=== PATIENT | female | born 1995 | race Caucasian/White ===

== ENCOUNTER 2016-07-25 20:46 | Emergency (ER) | payer OTHER ==
--- NOTE | 2016-07-25 22:00 | EDPHY ---
Mental Health General Previous Psychiatric History: bipolar Smoking Status: Never smoked Time Patient Placed on M1 Hold: 18:40 Time Medically Cleared for Psychiatric Evaluation: 22:48 Time of Transfer of Care: 00:00 To :: [place] Narrative: CHIEF COMPLAINT: M1 hold, suicidal HISTORY OF PRESENT ILLNESS: 21-year-old female presents emergency department on an M1 hold. Patient was texting friends that she was suicidal today. They called 911. Patient has a history of bipolar disorder, takes her medications as prescribed, her psychiatrist in [place] recently 1 week ago added Seroquel and Ativan to her medication list. Patient takes Lamictal, rigzulti, trazodone , gabapentin and xanax. She reports she has fibromyalgia. Patient reports increase in her depression. She denies any plan to harm herself. She denies drug or alcohol use. No homicidal ideations. No auditory or visual hallucinations. REVIEW OF SYSTEMS: A comprehensive 10 point review of systems is otherwise negative aside from elements mentioned in the history of present illness. Physical Exam Gen: Alert and Oriented, tearful HEENT: PERRL, moist mucous membranes NECK: no meningismus CV: regular rate and regular rhythm PULM: CTAB, no wheezes ABDOMEN: soft, non tender to palpation, BS present BACK: No CVA tenderness NEURO: Neurologically grossly intact EXTREMITIES: normal appearing SKIN: no rash or break in skin on exposed skin PSYCH: Reports thoughts of suicide with no plan (Yulisa Jensen) Medical Decision Makin-Report passed on to Dr. Head at the end of my shift pending mental health evaluation. (Yulisa Jensen) 6:20 a.m.- The patient has been stable throughout my shift. She is currently awaiting mental health evaluation. At change of shift at 7:00 a.m., the case will be signed out to the oncoming provider Dr. Portillo. (Pamela Head) 7:00 a.m. care transferred to ak. We are awaiting psychiatric evaluation. Patient has been medically cleared. No events overnight. 7:30 a.m. the patient has been evaluated by Mental Health. she is not currently suicidal. Her M1 hold has been released. We will discharge her home. (Yordan Portillo) - Objective Vital Signs: Initial Vital Signs Temperature (C) 37 C 07/25/16 20:53 Heart Rate 94 07/25/16 20:53 Respiratory Rate 16 07/25/16 20:53 Blood Pressure 124/74 H 07/25/16 20:53 O2 Sat (%) 98 07/25/16 20:53 O2 Delivery Mode Room Air Allergies/Adverse Reactions: gluten, corn syrup Allergy (Uncoded 07/25/16 20:54) Home Medications: Medication Instructions Recorded GABAPENTIN 12/20/15 Luvox 12/20/15 Pantoprazole Sodium [Protonix] 40 mg PO DAILY #14 tab 12/20/15 Rexulti 12/20/15 VYVANSE 12/20/15 traZODone 12/20/15 Ativan 07/25/16 LaMICtal 07/25/16 Seroquel 100 mg (*) 07/25/16 Xanax 07/25/16 Laboratory Results: Laboratory Results 07/25/16 21:55 07/25/16 21:55 07/25/16 07/25/16 07/25/16 22:00 21:55 21:55 WBC RBC Hgb Hct MCV MCH MCHC RDW Plt Count MPV Neut % (Auto) Lymph % (Auto) [place] % (Auto) Eos % (Auto) Baso % (Auto) Nucleat RBC Rel Count Absolute Neuts (auto) Absolute Lymphs (auto) Absolute Monos (auto) Absolute Eos (auto) Absolute Basos (auto) Absolute Nucleated RBC Immature Gran % Immature Gran # Sodium 139 mEq/L mEq/L (134-144) Potassium 3.8 mEq/L mEq/L (3.5-5.2) Chloride 104 mEq/L mEq/L (97-110) Carbon Dioxide 23 mEq/l mEq/l (22-31) Anion Gap 12 mEq/L mEq/L (8-16) BUN 13 mg/dL mg/dL (7-23) Creatinine 0.8 mg/dL mg/dL (0.6-1.0) Estimated GFR > 60 Glucose 140 mg/dL H mg/dL (70-100) Calcium 9.1 mg/dL mg/dL (8.5-10.4) Beta HCG, Qual NEGATIVE Urine Opiates Screen NON-NEGATIVE H (NEGATIVE) Urine Barbiturates NEGATIVE (NEGATIVE) Ur Phencyclidine Scrn NEGATIVE (NEGATIVE) Ur Amphetamine Screen NON-NEGATIVE H (NEGATIVE) U Benzodiazepines Scrn NON-NEGATIVE H (NEGATIVE) Urine Cocaine Screen NEGATIVE (NEGATIVE) U Marijuana (THC) Screen NEGATIVE (NEGATIVE) Ethyl Alcohol < 10 mg/dL mg/dL (0-10) 07/25/16 21:55 WBC 5.90 10^3/uL 10^3/uL (3.80-9.50) RBC 5.03 10^6/uL 10^6/uL (4.18-5.33) Hgb 13.7 g/dL g/dL (12.6-16.3) Hct 41.4 % % (38.0-47.0) MCV 82.3 fL fL (81.5-99.8) MCH 27.2 pg L pg (27.9-34.1) MCHC 33.1 g/dL g/dL (32.4-36.7) RDW 13.2 % % (11.5-15.2) Plt Count 215 10^3/uL 10^3/uL (150-400) MPV 9.6 fL fL (8.7-11.7) Neut % (Auto) 38.3 % L % (39.3-74.2) Lymph % (Auto) 56.3 % H % (15.0-45.0) [place] % (Auto) 3.7 % L % (4.5-13.0) Eos % (Auto) 1.2 % % (0.6-7.6) Baso % (Auto) 0.3 % % (0.3-1.7) Nucleat RBC Rel Count 0.0 % % (0.0-0.2) Absolute Neuts (auto) 2.26 10^3/uL 10^3/uL (1.70-6.50) Absolute Lymphs (auto) 3.32 10^3/uL H 10^3/uL (1.00-3.00) Absolute Monos (auto) 0.22 10^3/uL L 10^3/uL (0.30-0.80) Absolute Eos (auto) 0.07 10^3/uL 10^3/uL (0.03-0.40) Absolute Basos (auto) 0.02 10^3/uL 10^3/uL (0.02-0.10) Absolute Nucleated RBC 0.00 10^3/uL 10^3/uL (0-0.01) Immature Gran % 0.2 % % (0.0-1.1) Immature Gran # 0.01 10^3/uL 10^3/uL (0.00-0.10) Sodium Potassium Chloride Carbon Dioxide Anion Gap BUN Creatinine Estimated GFR Glucose Calcium Beta HCG, Qual Urine Opiates Screen Urine Barbiturates Ur Phencyclidine Scrn Ur Amphetamine Screen U Benzodiazepines Scrn Urine Cocaine Screen U Marijuana (THC) Screen Ethyl Alcohol Departure - Departure Disposition: Home, Routine, Self-Care Clinical Impression: Bipolar 1 disorder Condition: Fair Instructions: Bipolar Disorder (ED) Referrals: [facility],. [Clinic] - As per Instructions
[2016-07-25 22:06] LABS: % IMMATURE GRANULYOCYTES 0.2 % (0.0-1.1); ABSOLUTE IMMATURE GRANULOCYTES 0.01 10^3/uL (0.00-0.10); ADD DIFF? NO; ADD MORPH? NO; ADD SCAN? NO; ATYPICAL LYMPHOCYTE FLAG 10 (0-99); FRAGMENT RBC FLAG 0 (0-99); HEMATOCRIT 41.4 % (38.0-47.0); HEMOGLOBIN 13.7 g/dL (12.6-16.3); LEFT SHIFT FLG 0 (0-99); LIPEMIA HEMOLYSIS FLAG 80 (0-99); MEAN CELL HEMOGLOBIN 27.2 pg (27.9-34.1); MEAN CELL HEMOGLOBIN CONCENTR. 33.1 g/dL (32.4-36.7); MEAN CELL VOLUME 82.3 fL (81.5-99.8); MEAN PLATELET VOLUME 9.6 fL (8.7-11.7); PLATELET CLUMPS FLAG 10 (0-99); PLATELET COUNT 215 10^3/uL (150-400); RED BLOOD CELL COUNT 5.03 10^6/uL (4.18-5.33); RED CELL DISTRIBUTION WIDTH 13.2 % (11.5-15.2)
[2016-07-25 22:23] LABS: ANION GAP 12 mEq/L (8-16); CALCIUM 9.1 mg/dL (8.5-10.4); CARBON DIOXIDE 23 mEq/l (22-31); CHLORIDE 104 mEq/L (97-110); CREATININE 0.8 mg/dL (0.6-1.0); ETHANOL SERUM < 10 mg/dL (0-10); GLOMERULAR FILTRATION RATE > 60; GLUCOSE 140 mg/dL (70-100); POTASSIUM 3.8 mEq/L (3.5-5.2); SODIUM 139 mEq/L (134-144)
[2016-07-26 08:15] VITALS: BP 100/52; PULSE 65; RESP 18; TEMP 97.2; O2SAT 96
== END 2016-07-26 08:30 | disposition home or self-care (01) ==
LOC: EDUNIT#
DX: F31.9 Bipolar disorder, unspecified (principal)
CPT/HCPCS: 80305; G0480

== ENCOUNTER 2016-11-28 16:12 | Emergency (ER) | payer OTHER ==
[2016-11-28 17:35] LABS: % IMMATURE GRANULYOCYTES 0.3 % (0.0-1.1); ABSOLUTE IMMATURE GRANULOCYTES 0.02 10^3/uL (0.00-0.10); ADD DIFF? NO; ADD MORPH? NO; ADD SCAN? NO; ATYPICAL LYMPHOCYTE FLAG 20 (0-99); FRAGMENT RBC FLAG 0 (0-99); HEMATOCRIT 39.3 % (38.0-47.0); LEFT SHIFT FLG 0 (0-99); LIPEMIA HEMOLYSIS FLAG 80 (0-99); MEAN CELL HEMOGLOBIN 27.1 pg (27.9-34.1); MEAN CELL HEMOGLOBIN CONCENTR. 33.1 g/dL (32.4-36.7); MEAN CELL VOLUME 81.9 fL (81.5-99.8); MEAN PLATELET VOLUME 9.3 fL (8.7-11.7); PLATELET CLUMPS FLAG 0 (0-99); PLATELET COUNT 273 10^3/uL (150-400); RED CELL DISTRIBUTION WIDTH 13.3 % (11.5-15.2)
[2016-11-28] MEDS ORDERED: fentaNYL 100 MCG/2 ML INJ IVP ONE ×2 (17:42→20:25)
[2016-11-28 17:50] LABS: ANION GAP 12 mEq/L (8-16); CARBON DIOXIDE 22 mEq/l (22-31); CHLORIDE 106 mEq/L (97-110); CREATININE 0.8 mg/dL (0.6-1.0); GLOMERULAR FILTRATION RATE > 60; GLUCOSE 104 mg/dL (70-100); POTASSIUM 4.4 mEq/L (3.5-5.2); SODIUM 140 mEq/L (134-144)
[2016-11-28] MEDS ORDERED: NS 1,000 ML IV ONE (20:25)
[2016-11-28 20:47] LABS: PROTEIN, CSF 20 mg/dL (12-60)
[2016-11-28 20:56] LABS: CSF APPEARANCE SL. HAZY (CLEAR); CSF SUPERNATANT COLORLESS (COLORLESS); WBC, CSF 2 /mm3 (0-5)
[2016-11-28 20:59] LABS: CSF APPEARANCE CLEAR (CLEAR); CSF COLOR COLORLESS (COLORLESS); CSF SUPERNATANT COLORLESS (COLORLESS); WBC, CSF 0 /mm3 (0-5)
[2016-11-28] MEDS ORDERED: DEXAMETHASONE 10 MG/ML VIAL IVP ONE (21:01)
[2016-11-28] MEDS ORDERED: KETOROLAC 30 MG/1 ML SDV IVP ONE (21:01)
[2016-11-28] MEDS ORDERED: PROMETHAZINE HCL 25 MG/ML INJ IVP ONE (21:02)
--- NOTE | 2016-11-28 21:30 | EDPHY ---
H & P Stated Complaint: Has migraine x 1 wk, feels tired Time Seen by Provider: 11/28/16 17:04 HPI/ROS: Chief complaint: Headache History of present illness: This is a 21-year-old female who presents to the emergency department for evaluation and treatment of a headache. Patient reports the onset of symptoms 1 week ago. 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 She describes a sharp pain. She denies precipitating factors. It is waxing and waning in intensity but today significantly worsened again as she describes it as some of the worst pain she has had in her head. She has a history of migraines and states this is not similar to them at all. She does have an overlying headache all over that has developed over the last 1 to 2 days in addition to the pain in the back of her head which is similar to her migraine headaches. She reports associated sensitivity to sound and light with this discomfort. Again with the initial pain in the back of her head there were no precipitating factors that she can think of. It was very quick and intense in onset. She currently has the pain. The patient denies associated signs or symptoms including no fevers, no cold symptoms, no paresthesias, no weakness or paralysis, no bowel or bladder dysfunction. No trauma. Review of systems: A 10 point review of systems was obtained and other than described above was negative - Personal History LMP (Females 10-55): IUD In Place Current Tetanus Diphtheria and Acellular Pertussis (TDAP): Yes - Medical/Surgical History Hx Asthma: No Hx Chronic Respiratory Disease: No Hx Diabetes: No Hx Cardiac Disease: No Hx Renal Disease: No Hx Cirrhosis: No Hx Alcoholism: No Hx HIV/AIDS: No Hx Splenectomy or Spleen Trauma: No Other PMH: BIPOLAR,ANXIETY,INSOMNIA,OCD, add. migraines - Social History Smoking Status: Never smoked - Physical Exam Exam: General Appearance: Alert, nontoxic. Eyes: Pupils equal and round no pallor or injection. ENT, Mouth: Mucous membranes moist. Respiratory: There are no retractions, lungs are clear to auscultation. Cardiovascular: Regular rate and rhythm. Gastrointestinal: Abdomen is soft and nontender, no masses, bowel sounds normal. Neurological: Alert and oriented x4. Cranial nerves 2-12 grossly intact. Strength and sensation intact and symmetrical. No meningismus. Patient ambulating without difficulty. Skin: Warm and dry, no rashes. Musculoskeletal: Neck is supple nontender. Extremities are symmetrical, full range of motion. Psychiatric: Patient is oriented X 3, there is no agitation. Constitutional: Initial Vital Signs Temperature (C) 37.1 C 11/28/16 16:15 Heart Rate 112 H 11/28/16 16:15 Respiratory Rate 18 11/28/16 16:15 Blood Pressure 121/68 H 11/28/16 16:15 O2 Sat (%) 98 11/28/16 16:15 O2 Delivery Mode Room Air Allergies/Adverse Reactions: gluten, corn syrup Allergy (Mild, Uncoded 11/28/16 16:18) sweats,GI upset Home Medications: Medication Instructions Recorded GABAPENTIN 12/20/15 VYVANSE 12/20/15 LaMICtal 07/25/16 Seroquel 100 mg (*) 07/25/16 Xanax 07/25/16 [employer] Carbonate [[employer] 300 mg PO 11/28/16 Carbonate Cap 300 mg (*)] Medical Decision Making - Diagnostics Imaging Results: Imaging Impressions Head CT 11/28/16 17:50 Impression: 1. Normal CT brain without contrast. 2. No evidence of hemorrhage. 3. No sinusitis. 4.Consider MRI of the brain without and with contrast enhancement, if there is continued clinical concern. Findings and recommendations discussed with Emergency Department physician, ESPERANZA Butcher at 18:33 hour, 11/28/2016. Final report concurs with initial preliminary interpretation. Procedures: Procedure: Lumbar puncture. Indication: Sudden onset of atypical headache After verbal informed consent from patient explaining the risks including infection, bleeding, and neurologic damage, a lumbar puncture was performed after the patient was prepped and draped in the usual fashion. The back was anesthetized with 1% lidocaine. Approximately 4 cc of clear fluid was obtained. Opening pressure was not obtained. There were no complications. The procedure was performed by myself. Patient was given IV fluid and asked to lay flat for approximately an hour after the procedure ED Course/Re-evaluation: Patient is discussed with my secondary supervising physician Dr. Pk Pack. Patient presents to the emergency department describing a thunderclap type headache that began a week ago. It persists. She has an associated migraine which is typical for her. On presentation she is nontoxic. Afebrile and vital signs are stable. Physical exam is benign including a nonfocal neurologic exam. Baseline blood studies unremarkable. Given the thunderclap nature of the atypical nature of the headache she undergoes a CT scan which is normal. We have discussed the potential for intracranial bleed with this type of symptomatology and I have discussed the risks and benefits of pursuing a lumbar puncture to fully evaluate her symptoms. She has agreed to an LP. This is performed without complications. Patient appears to clear blood well from a likely a traumatic tap, myself and my attending physician Dr. Pack do not believe this represents an acute intracranial bleed. No evidence of serious pathology at this time that requires further emergency department intervention or inpatient management. She is treated with listed medications with some improvement in symptoms. She will be discharged home. She is referred to Neurology for continued evaluation and care. Strict return precautions are given. Patient voiced understanding and agreement with plan. Differential Diagnosis: Included but not limited to intracranial bleed, tumor, thromboembolic disease, migraine, cluster headache, tension headache, chronic daily headache, status migrainous - Data Points Laboratory Results: Laboratory Results 11/28/16 17:25 11/28/16 17:25 11/28/16 11/28/16 11/28/16 20:15 20:15 17:25 WBC RBC Hgb Hct MCV MCH MCHC RDW Plt Count MPV Neut % (Auto) Lymph % (Auto) [place] % (Auto) Eos % (Auto) Baso % (Auto) Nucleat RBC Rel Count Absolute Neuts (auto) Absolute Lymphs (auto) Absolute Monos (auto) Absolute Eos (auto) Absolute Basos (auto) Absolute Nucleated RBC Immature Gran % Immature Gran # Sodium Potassium Chloride Carbon Dioxide Anion Gap BUN Creatinine Estimated GFR Glucose Calcium Beta HCG, Qual NEGATIVE CSF Tube Number 4 1 CSF Appearance CLEAR SL. HAZY H (CLEAR) (CLEAR) CSF Color COLORLESS WHITE H (COLORLESS) (COLORLESS) CSF Supernatant COLORLESS COLORLESS (COLORLESS) (COLORLESS) CSF WBC 0 /mm3 /mm3 2 /mm3 /mm3 (0-5) (0-5) CSF RBC 2 /mm3 H /mm3 494 /mm3 H /mm3 (0-0) (0-0) CSF Glucose 58 mg/dL mg/dL (50-75) CSF Total Protein 20 mg/dL mg/dL (12-60) 11/28/16 11/28/16 17:25 17:25 WBC 7.54 10^3/uL 10^3/uL (3.80-9.50) RBC 4.80 10^6/uL 10^6/uL (4.18-5.33) Hgb 13.0 g/dL g/dL (12.6-16.3) Hct 39.3 % % (38.0-47.0) MCV 81.9 fL fL (81.5-99.8) MCH 27.1 pg L pg (27.9-34.1) MCHC 33.1 g/dL g/dL (32.4-36.7) RDW 13.3 % % (11.5-15.2) Plt Count 273 10^3/uL 10^3/uL (150-400) MPV 9.3 fL fL (8.7-11.7) Neut % (Auto) 60.2 % % (39.3-74.2) Lymph % (Auto) 33.8 % % (15.0-45.0) [place] % (Auto) 3.6 % L % (4.5-13.0) Eos % (Auto) 2.0 % % (0.6-7.6) Baso % (Auto) 0.1 % L % (0.3-1.7) Nucleat RBC Rel Count 0.0 % % (0.0-0.2) Absolute Neuts (auto) 4.54 10^3/uL 10^3/uL (1.70-6.50) Absolute Lymphs (auto) 2.55 10^3/uL 10^3/uL (1.00-3.00) Absolute Monos (auto) 0.27 10^3/uL L 10^3/uL (0.30-0.80) Absolute Eos (auto) 0.15 10^3/uL 10^3/uL (0.03-0.40) Absolute Basos (auto) 0.01 10^3/uL L 10^3/uL (0.02-0.10) Absolute Nucleated RBC 0.00 10^3/uL 10^3/uL (0-0.01) Immature Gran % 0.3 % % (0.0-1.1) Immature Gran # 0.02 10^3/uL 10^3/uL (0.00-0.10) Sodium 140 mEq/L mEq/L (134-144) Potassium 4.4 mEq/L mEq/L (3.5-5.2) Chloride 106 mEq/L mEq/L (97-110) Carbon Dioxide 22 mEq/l mEq/l (22-31) Anion Gap 12 mEq/L mEq/L (8-16) BUN 9 mg/dL mg/dL (7-23) Creatinine 0.8 mg/dL mg/dL (0.6-1.0) Estimated GFR > 60 Glucose 104 mg/dL H mg/dL (70-100) Calcium 9.0 mg/dL mg/dL (8.5-10.4) Beta HCG, Qual CSF Tube Number CSF Appearance CSF Color CSF Supernatant CSF WBC CSF RBC CSF Glucose CSF Total Protein Microbiology Results: MICROBIOLOGY 11/28/16 20:15 Cerebral Spinal Fluid Gram Stain - Final Medications Given: Discontinued Medications Dexamethasone (Decadron Injection) 10 mg IVP EDNOW ONE Stop: 11/28/16 21:02 Last Admin: 11/28/16 21:29 Dose: 10 mg Diphenhydramine HCl (Benadryl Injection) 25 mg IVP EDNOW ONE Stop: 11/28/16 21:02 Last Admin: 11/28/16 21:29 Dose: 25 mg Fentanyl (Sublimaze) 50 mcg IVP EDNOW ONE Stop: 11/28/16 17:43 Last Admin: 11/28/16 17:47 Dose: 50 mcg Fentanyl (Sublimaze) 50 mcg IVP EDNOW ONE Stop: 11/28/16 20:26 Last Admin: 11/28/16 20:35 Dose: 50 mcg Sodium Chloride (Ns) 1,000 mls @ 0 mls/hr IV ONCE ONE; Wide Open PRN Reason: Protocol Stop: 11/28/16 20:26 Last Admin: 11/28/16 20:30 Dose: 1,000 mls Ketorolac Tromethamine (Toradol) 15 mg IVP EDNOW ONE Stop: 11/28/16 21:02 Last Admin: 11/28/16 21:29 Dose: 15 mg Promethazine HCl (Phenergan) 6.25 mg IVP EDNOW ONE Stop: 11/28/16 21:03 Last Admin: 11/28/16 21:28 Dose: 6.25 mg Departure - Departure Disposition: Home, Routine, Self-Care Clinical Impression: Headache Qualifiers: Headache type: unspecified Headache chronicity pattern: acute headache Intractability: not intractable Qualified Code(s): R51 - Headache Condition: Good Instructions: Acute Headache (ED) Additional Instructions: Follow-up with your primary care doctor and Neurology for continued care If symptoms worsen or new symptoms develop return to the emergency room for recheck Referrals: HAYDEE KNIGHT NP [Primary Care Provider] - As per Instructions Christian Petty MD [Medical Doctor] - As per Instructions
[2016-11-28 21:56] VITALS: RESP 16
[2016-11-28 22:29] VITALS: BP 108/68; PULSE 89; TEMP 98.2; O2SAT 96
== END 2016-11-28 22:29 | disposition home or self-care (01) ==
PROC: 009U3ZX Drainage of Spinal Canal, Percutaneous Approach, Diagnostic (ICD-10-PCS; principal; 2016-11-28)
DX: R51 Headache (principal); E86.9 Volume depletion, unspecified
CPT/HCPCS: 96374; J1100; J1200; J1885; J2550; J3010

== ENCOUNTER 2016-11-29 11:11 | Emergency (ER) | payer OTHER ==
[2016-11-29] MEDS ORDERED: NS 1,000 ML IV ONE (12:40)
[2016-11-29] MEDS ORDERED: ACETAMINOPHEN 500 MG TAB PO ONE (12:49)
[2016-11-29] MEDS ORDERED: HYDROmorphONE/DILAUDID 1 MG/ML SYR IVP ONE ×2 (12:58→14:29)
[2016-11-29] MEDS ORDERED: LORazepam 2 MG/ML INJ IVP ONE (12:58)
[2016-11-29] MEDS ORDERED: ONDANSETRON 4 MG/2 ML VIAL IVP ONE (12:58)
--- NOTE | 2016-11-29 13:15 | EDPHY ---
H & P Stated Complaint: spinal tap yesterday for vanegas/now with back pain/vanegas - Personal History LMP (Females 10-55): Over 28 Days Ago Current Tetanus/Diphtheria Vaccine: Yes - Medical/Surgical History Hx Asthma: No Hx Chronic Respiratory Disease: No Hx Diabetes: No Hx Cardiac Disease: No Hx Renal Disease: No Hx Cirrhosis: No Hx Alcoholism: No Hx HIV/AIDS: No Hx Splenectomy or Spleen Trauma: No Other PMH: BIPOLAR,ANXIETY,INSOMNIA,OCD, add. migraines - Social History Smoking Status: Never smoked Time Seen by Provider: 11/29/16 12:57 HPI/ROS: CHIEF COMPLAINT: LOW BACK PAIN POST LUMBAR PUNCTURE HISTORY OF PRESENT ILLNESS: 21-year-old female seen emergency department yesterday for new onset headache has CT imaging and lumbar puncture both of which were negative, discharged home. She woke until the night complaining of exquisite amount of lumbar back pain reproducible with movement. Reports that she has been in tears ,has not slept. No fever no chills no nausea no vomiting no radiculopathy. No saddle anesthesia. No incontinence no retention. She denies headache. Denies positional /postural nature of back pain. REVIEW OF SYSTEMS: A ten point review of systems was performed and is negative with the exception of the items mentioned in the HPI PAST MEDICAL & SURGICAL HISTORY: recent lumbar puncture . Chronic headache SOCIAL HISTORY: nonsmoker no injectable drug use PHYSICAL EXAM (Prior to examination, patient consented to physical exam, hands were washed and my usual and customary physical exam procedures followed) 1) GENERAL: Well-developed, well-nourished, alert and oriented. Appears uncomfortable, crying 2) HEAD: Normocephalic, atraumatic 3) HEENT: Pupils equal, round, reactive to light bilaterally. Sclera anicteric. 4) NECK: Full range of motion, no meningeal signs. 5) LUNGS: Clear auscultation bilaterally, no wheezes, no rhonchi, no retractions. 6) HEART: Regular rate and rhythm, no murmur, no heave, no gallop. 7) ABDOMEN: No guarding, no rebound, no focal tenderness, negative McBurney's, negative Monge's, negative Rovsing's, negative peritoneal sign, 8) MUSCULOSKELETAL: Moving all extremities, no focal areas of tenderness, no obvious trauma. No peripheral edema or discoloration. 9) BACK: tender to palpation midline at the puncture site. No erythema. No crepitus. Patella and Achilles reflexes are intact and full bilaterally with strength 5/5. No foot drop. 10) SKIN: No rash, no petechiae. 11) Psychiatric: Patient is oriented X 3, there is no agitation. DIFFERENTIAL DIAGNOSIS: In no particular order, including but not limited to, discogenic etiology, cauda equina, spinal infectious etiology, epidural hematoma (Dinora Valente) Constitutional: Initial Vital Signs Temperature (C) 36.5 C 11/29/16 11:20 Heart Rate 125 H 11/29/16 11:20 Respiratory Rate 20 11/29/16 11:20 Blood Pressure 106/62 11/29/16 11:20 O2 Sat (%) 98 11/29/16 11:20 O2 Delivery Mode Room Air Allergies/Adverse Reactions: gluten, corn syrup Allergy (Mild, Uncoded 11/29/16 11:19) sweats,GI upset Home Medications: Medication Instructions Recorded GABAPENTIN 12/20/15 VYVANSE 12/20/15 LaMICtal 07/25/16 Seroquel 100 mg (*) 07/25/16 Xanax 07/25/16 [place] Carbonate [[place] 300 mg PO 11/28/16 Carbonate Cap 300 mg (*)] Hydrocodone/APAP 5/325 [[place] 1 tab PO Q6 PRN #10 tab 11/29/16 5/325 (RX)] Medical Decision Making - Diagnostics Imaging: Discussed imaging studies w/ call center support representative Radiologist - Diagnostics Imaging Results: Images reviewed by myself (Dinora Valente) ED Course/Re-evaluation: 1:26 p.m.: Patient evaluated by myself and case discussed Dr. Zulema Jimenez in the ER. Patient has an exquisite amount of pain at her puncture site and in the surrounding area. She is neurologically intact lower extremities with no radiculopathy. We discussed possibility of epidural hematoma and MRI was recommended which patient is agreeable with. 4:00 p.m.: MRI results returned showing no postprocedure epidural hematoma, abscess, disc herniation or other acute abnormality. Patient re-evaluated and states that she is feeling improvement. Nurse's notes that she has been walking around the emergency department, was observed sitting upright on the bed texting on her phone and appears improved. Plan will be discharged with analgesia and follow up with her primary care provider. (Dinora Valente) The patient was evaluated and managed by the physician resident assistant. I have reviewed this chart and I agree with the findings and plan of care as documented , as indicated by my signature. I am the secondary supervising physician. ( Zulema Jimenez) - Data Points Laboratory Results: Laboratory Results 11/29/16 15:30 11/29/16 15:30 Medications Given: Discontinued Medications Acetaminophen (Tylenol) 1,000 mg PO EDNOW ONE Stop: 11/29/16 12:50 Last Admin: 11/29/16 12:53 Dose: 1,000 mg Hydromorphone HCl (Dilaudid) 1 mg IVP EDNOW ONE Stop: 11/29/16 12:59 Last Admin: 11/29/16 13:16 Dose: 1 mg Hydromorphone HCl (Dilaudid) 1 mg IVP EDNOW ONE Stop: 11/29/16 14:30 Last Admin: 11/29/16 14:36 Dose: 1 mg Sodium Chloride (Ns) 1,000 mls @ 0 mls/hr IV ONCE ONE PRN Reason: Wide Open Stop: 11/29/16 12:41 Last Admin: 11/29/16 13:12 Dose: 1,000 mls Lorazepam (Ativan Injection) 1 mg IVP EDNOW ONE Stop: 11/29/16 12:59 Last Admin: 11/29/16 13:14 Dose: 1 mg Ondansetron HCl (Zofran) 4 mg IVP EDNOW ONE Stop: 11/29/16 12:59 Last Admin: 11/29/16 13:15 Dose: 4 mg Departure - Departure Disposition: Home, Routine, Self-Care Clinical Impression: Low back pain post lumbar puncture Condition: Good Instructions: Acute Low Back Pain (ED) Additional Instructions: Seek medical attention if you develop new or worsening pain, if you develop bladder or bowel dysfunction, numbness around your perineum, foot drop, or any other symptoms that concern you. Referrals: HAYDEE KNIGHT [employer] [Primary Care Provider] - 1-2 days without fail Prescriptions: Hydrocodone/APAP 5/325 [[place] 5/325 (RX)] 1 tab PO Q6 PRN #10 tab PRN Reason: Pain, Severe
[2016-11-29 15:43] LABS: % IMMATURE GRANULYOCYTES 0.7 % (0.0-1.1); ABSOLUTE IMMATURE GRANULOCYTES 0.08 10^3/uL (0.00-0.10); ADD DIFF? NO; ADD MORPH? NO; ADD SCAN? NO; ATYPICAL LYMPHOCYTE FLAG 0 (0-99); FRAGMENT RBC FLAG 0 (0-99); HEMATOCRIT 37.3 % (38.0-47.0); HEMOGLOBIN 12.7 g/dL (12.6-16.3); LEFT SHIFT FLG 0 (0-99); LIPEMIA HEMOLYSIS FLAG 90 (0-99); MEAN CELL HEMOGLOBIN 27.7 pg (27.9-34.1); MEAN CELL VOLUME 81.3 fL (81.5-99.8); MEAN PLATELET VOLUME 9.6 fL (8.7-11.7); PLATELET CLUMPS FLAG 0 (0-99); PLATELET COUNT 270 10^3/uL (150-400); RED BLOOD CELL COUNT 4.59 10^6/uL (4.18-5.33); RED CELL DISTRIBUTION WIDTH 13.2 % (11.5-15.2)
[2016-11-29 16:09] LABS: ANION GAP 9 mEq/L (8-16); CALCIUM 7.6 mg/dL (8.5-10.4); CARBON DIOXIDE 17 mEq/l (22-31); CHLORIDE 114 mEq/L (97-110); CREATININE 0.6 mg/dL (0.6-1.0); GLOMERULAR FILTRATION RATE > 60; GLUCOSE 101 mg/dL (70-100); POTASSIUM 3.7 mEq/L (3.5-5.2); SODIUM 140 mEq/L (134-144)
[2016-11-29 16:52] VITALS: BP 117/64; PULSE 101; RESP 18; TEMP 98.1; O2SAT 98
== END 2016-11-29 16:50 | disposition home or self-care (01) ==
DX: G97.1 Other reaction to spinal and lumbar puncture (principal)
CPT/HCPCS: 96374; J1170; J2060; J2405

== ENCOUNTER 2017-06-23 21:50 | Emergency (ER) | payer OTHER ==
--- NOTE | 2017-06-23 22:09 | EDPHY ---
H & P Stated Complaint: took unknown amount of xanax, maybe took 9, SI - Personal History LMP (Females 10-55): 8-14 Days Ago Current Tetanus Diphtheria and Acellular Pertussis (TDAP): Yes - Medical/Surgical History Hx Asthma: No Hx Chronic Respiratory Disease: No Hx Diabetes: No Hx Cardiac Disease: No Hx Renal Disease: No Hx Cirrhosis: No Hx Alcoholism: No Hx HIV/AIDS: No Hx Splenectomy or Spleen Trauma: No Other PMH: BIPOLAR,ANXIETY,INSOMNIA,OCD, add. migraines, fibromyalgia - Social History Smoking Status: Never smoked Time Seen by Provider: 06/23/17 22:09 Constitutional: Initial Vital Signs Temperature (C) 36.5 C 06/23/17 21:57 Heart Rate 100 06/23/17 21:57 Respiratory Rate 18 06/23/17 21:57 Blood Pressure 105/67 06/23/17 21:57 O2 Sat (%) 98 06/23/17 21:57 O2 Delivery Mode Room Air Allergies/Adverse Reactions: gluten, corn syrup Allergy (Mild, Uncoded 11/29/16 11:19) sweats,GI upset Home Medications: Medication Instructions Recorded VYVANSE 12/20/15 LaMICtal 07/25/16 Seroquel 100 mg (*) 07/25/16 Xanax 07/25/16 Medical Decision Making ED Course/Re-evaluation: CHIEF COMPLAINT: Suicide attempt, Xanax overdose HISTORY OF PRESENT ILLNESS: This is a 22 y/o female with a history of bipolar disorder who arrives with her friend after she took "maybe 7 pills" of 1mg Xanax in an attempt to kill herself tonight. She reports she tried to drink alcohol too, but spit it out. She denies any other ingestions or attempts to harm herself tonight. She denies history of prior overdoses, but has cut herself previously. She denies homicidal ideation. No recent illness or trauma. REVIEW OF SYSTEMS: A 10 point review of systems was performed and is negative with the exception of the elements mentioned in the history of present illness. PHYSICAL EXAM: HR, BP, O2 Sat, RR. Temp noted General Appearance: Alert, well hydrated, appropriate, and non-toxic appearing. Mildly drowsy. Head: Atraumatic without scalp tenderness or obvious injury Eyes: Pupils equal, round, reactive to light and accommodation, EOMI, no trauma , no injection. Nose: Atraumatic, no rhinorrhea, clear. Throat: Mucus membranes moist. Neck: Supple, nontender, no lymphadenopathy. Respiratory: No retractions, no distress, no wheezes, and no accessory muscle use. Lungs are clear to auscultation bilaterally. Cardiovascular: Regular rate and rhythm, no murmurs, rubs, or gallops. Good capillary refill all extremities. Gastrointestinal: Abdomen is soft, nontender, non-distended, no masses, no rebound, no guarding, no peritoneal signs. Musculoskeletal: Normal active ROM of all extremities, atraumatic. Neurological: Alert, appropriate, and interactive. The patient has non-focal cranial nerves, motor, sensory, and cerebellar exam. Skin: No rashes, good turgor, no nodules on palpation. Past medical history: Bipolar disorder, anxiety, insomnia, OCD, ADD, migraines, fibromyalgia. Past surgical history: Denies Family history: Noncontributory Social history: Friend at bedside. Lives in [place]. [employer] student. DIFFERENTIAL DIAGNOSIS: The differential diagnosis for the patient's depression included but was not limited to functional and major depression, situational depression, medication side effect, drugs, and alcohol abuse. MEDICAL DECISION MAKING: This is a 22 y/o female with bipolar disorder who presents for evaluation following intentional Xanax overdose tonight on possibly 7 1mg Xanax pills. Apart from mild drowsiness, her exam is unremarkable. Plan for standard psychiatric labs and mental health evaluation. Will keep patient on site monitor due to overdose. (Bong Rea) Other Provider: 2230 care assumed by me from Dr. Rea pending mental health evaluation. [address] Pate pending mental health evaluation. No issues during my care this patient overnight. (Nate Zamarripa) I assumed care of the patient at 0700. The patient was evaluated by the psychiatric evaluation service here [facility]. The patient is currently mustapha for safety. She has a friend who will secure her Xanax and dispense only 1 tablet a day. The patient would like to be discharged home and follow up with her local psychiatrist and therapist. The patient's case was discussed with the on-call psychiatrist who recommends the patient not be placed on an M1 psychiatric hold. The patient will be discharged home with customary aftercare instructions and return precautions. (Gilbert Pate) - Data Points Laboratory Results: Laboratory Results 06/23/17 22:15 06/23/17 22:15 06/23/17 06/23/17 06/23/17 22:20 22:15 22:15 WBC RBC Hgb Hct MCV MCH MCHC RDW Plt Count MPV Neut % (Auto) Lymph % (Auto) [place] % (Auto) Eos % (Auto) Baso % (Auto) Nucleat RBC Rel Count Absolute Neuts (auto) Absolute Lymphs (auto) Absolute Monos (auto) Absolute Eos (auto) Absolute Basos (auto) Absolute Nucleated RBC Immature Gran % Immature Gran # Sodium 145 mEq/L mEq/L (135-145) Potassium 4.4 mEq/L mEq/L (3.5-5.2) Chloride 104 mEq/L mEq/L (97-110) Carbon Dioxide 28 mEq/l mEq/l (22-31) Anion Gap 13 mEq/L mEq/L (8-16) BUN 9 mg/dL mg/dL (7-23) Creatinine 0.9 mg/dL mg/dL (0.6-1.0) Estimated GFR > 60 Glucose 84 mg/dL mg/dL (70-100) Calcium 9.8 mg/dL mg/dL (8.5-10.4) Beta HCG, Qual NEGATIVE Salicylates < 1.0 mg/dL L mg/dL (2.0-20.0) Urine Opiates Screen NEGATIVE (NEGATIVE) Acetaminophen < 10 mcg/mL L mcg/mL (10-30) Urine Barbiturates NEGATIVE (NEGATIVE) Ur Phencyclidine Scrn NEGATIVE (NEGATIVE) Ur Amphetamine Screen NON-NEGATIVE H (NEGATIVE) U Benzodiazepines Scrn NON-NEGATIVE H (NEGATIVE) Urine Cocaine Screen NEGATIVE (NEGATIVE) U Marijuana (THC) Screen NEGATIVE (NEGATIVE) Ethyl Alcohol < 10 mg/dL mg/dL (0-10) 06/23/17 22:15 WBC 5.63 10^3/uL 10^3/uL (3.80-9.50) RBC 5.02 10^6/uL 10^6/uL (4.18-5.33) Hgb 13.5 g/dL g/dL (12.6-16.3) Hct 40.2 % % (38.0-47.0) MCV 80.1 fL L fL (81.5-99.8) MCH 26.9 pg L pg (27.9-34.1) MCHC 33.6 g/dL g/dL (32.4-36.7) RDW 14.6 % % (11.5-15.2) Plt Count 259 10^3/uL 10^3/uL (150-400) MPV 9.5 fL fL (8.7-11.7) Neut % (Auto) 55.2 % % (39.3-74.2) Lymph % (Auto) 38.5 % % (15.0-45.0) [place] % (Auto) 5.0 % % (4.5-13.0) Eos % (Auto) 0.7 % % (0.6-7.6) Baso % (Auto) 0.4 % % (0.3-1.7) Nucleat RBC Rel Count 0.0 % % (0.0-0.2) Absolute Neuts (auto) 3.11 10^3/uL 10^3/uL (1.70-6.50) Absolute Lymphs (auto) 2.17 10^3/uL 10^3/uL (1.00-3.00) Absolute Monos (auto) 0.28 10^3/uL L 10^3/uL (0.30-0.80) Absolute Eos (auto) 0.04 10^3/uL 10^3/uL (0.03-0.40) Absolute Basos (auto) 0.02 10^3/uL 10^3/uL (0.02-0.10) Absolute Nucleated RBC 0.00 10^3/uL 10^3/uL (0-0.01) Immature Gran % 0.2 % % (0.0-1.1) Immature Gran # 0.01 10^3/uL 10^3/uL (0.00-0.10) Sodium Potassium Chloride Carbon Dioxide Anion Gap BUN Creatinine Estimated GFR Glucose Calcium Beta HCG, Qual Salicylates Urine Opiates Screen Acetaminophen Urine Barbiturates Ur Phencyclidine Scrn Ur Amphetamine Screen U Benzodiazepines Scrn Urine Cocaine Screen U Marijuana (THC) Screen Ethyl Alcohol Departure - Departure Disposition: Home, Routine, Self-Care Clinical Impression: Severe major depression Condition: Good Instructions: Depression (ED) Additional Instructions: 1. Please follow-up with your psychiatrist and therapist as recommended by the psychiatry consultation service. 2. [facility] does operate a 24 psychiatric crisis unit located at [facility]. The telephone number for the 24 hour crisis center is [phone]. 3. Please return to the ED if you are feeling suicidal, having thoughts of harming yourself/others or should you feel unsafe or have worsening symptoms. Referrals: JOSUÉ BRISCOE [Other] - As per Instructions Report Scribed for: Bong Rea Report Scribed by: Cass Dickson Date of Report: 06/23/17 Time of Report: 22:34
[2017-06-23 22:42] LABS: PLATELET COUNT 259 10^3/uL (150-400)
[2017-06-24 06:00] VITALS: RESP 16
[2017-06-24 08:22] VITALS: BP 93/55; PULSE 86; TEMP 97.5; O2SAT 96
== END 2017-06-24 08:22 | disposition home or self-care (01) ==
DX: F32.2 Major depressive disorder, single episode, severe without psychotic features (principal)
CPT/HCPCS: 80305; G0480

== ENCOUNTER 2018-07-26 23:14 | Emergency (ER) | payer OTHER ==
--- NOTE | 2018-07-26 23:17 | EDPHY ---
H & P Time Seen by Provider: 07/26/18 23:17 HPI/ROS: HPI CHIEF COMPLAINT: Concern for possible OD. HISTORY OF PRESENT ILLNESS: 23-year-old female, history of bipolar disorder, presents to the emergency room by EMS for concern about possible overdose. The patient arrives to the emergency room by EMS after 911 was called by her mom for welfare check. Patient states she took her nightly medications including Ambien and Seroquel. She tells me she took her normal dose of Seroquel which she believes to be 100 mg as well as her normal dose of Ambien which she believes to be 13 mg. States she went to go to sleep. She denies feeling homicidal or suicidal. When EMS and police found her she was sleepy somewhat lethargic, and had a low blood pressure per EMS of 80s over 40s systolic. Patient denies any complaints. She states she does not really know why she is in the emergency room. She reports to me that her mom called for a welfare check she reports that she last talked her mom at 3:00 p.m.. However she also reports to me that she lives in apartment has roommates but is not seen her roommates in months. Past Medical History: Bipolar disorder Past Surgical History: No recent surgery Social History: Denies daily use of drugs alcohol tobacco. Family History: Noncontributory ROS REVIEW OF SYSTEMS: 10 Systems were reviewed and negative with the exception of the elements mentioned in the history of present illness. Exam Constitutional triage nursing summary reviewed, vital signs reviewed, awake/ alert. Eyes normal conjunctivae and sclera, EOMI, PERRLA. HENT normal inspection, atraumatic, moist mucus membranes, no epistaxis, neck supple/ no meningismus, no raccoon eyes. Respiratory clear to auscultation bilaterally, normal breath sounds, no respiratory distress, no wheezing. Cardiovascular rate normal, regular rhythm, no murmur, no edema, distal pulses normal. Gastrointestinal soft, non-tender, no rebound, no guarding, normal bowel sounds, no distension, no pulsatile mass. Genitourinary no CVA tenderness. Musculoskeletal no midline vertebral tenderness, full range of motion, no calf swelling, no tenderness of extremities, no meningismus, good pulses, neurovascularly intact. Skin pink, warm, & dry, no rash, skin atraumatic. Neurologic awake, alert and oriented x 3, AAOx3, moves all 4 extremities equally, motor intact, sensory intact, CN II-XII intact, normal cerebellar, normal vision, normal speech. Psychiatric flat affect Heme/Lymph/Immune no lymphadenopathy. Differential Diagnosis: Includes but is not limited to in a particular order mood disorder, bipolar disorder, lisette, depression, medication overdose Medical Decision Making: Plan for this patient IV establishment IV fluid bolus , basic labs, EKG, patient is not on M1 hold. Will try to talk to her mom about what is going on. [facility] Re-evaluation: EKG interpretation by me on record in [facility] system. Impression DX 2335, sinus rhythm rate of 69, no signs of acute ischemia, no prolonged intervals. No signs of cardiac arrhythmia. 1200: Long discussion with parents at bedside as well as patient. Patient contracts for safety she does not want hurt herself anybody else. She reports she took her nightly dose of Ambien and Seroquel it wanted to go to sleep. Her parents were up in [facility] and they tried to get a hold of her multiple times but was unable to do so they became concerned as she does have a history of bipolar disorder and depression. Due the fact that could not get a hold of her they called for a welfare check and drove back here. She arrived to the emergency room Calm and cooperative however does have a flat affect she denies want hurt herself or anybody else. Her parents are at bedside would like to take her home. They do not feel that she needs mental health evaluation. Nor does the patient. The patient is refusing any blood draw. The patient denies any focal complaints. She does have a psychiatrist. The parents feel comfortable taking her home and watch her tonight due they did not feel that she is severely depressed or going to hurt herself or anybody else. They just became concerned they could not get a hold of her. The patient denies taking more medications that she normally does. She states she was tired and wanted to sleep. She denies wanting to not wake up. Denies ingesting more than what she is supposed to. I did offer mental health evaluation to the parents as well as the patient however they all decline. They would like to take her home. They do not feel this is needed. Additionally: I discussed with mom and dad if they would like her observed today or have jackelin, they feel this is not needed, and want to be discharged. They do not have any concern about her MH at this time. Return precautions discussed. Source: Patient, EMS - Medical/Surgical History Hx Asthma: No Hx Chronic Respiratory Disease: No Hx Diabetes: No Hx Cardiac Disease: No Hx Renal Disease: No Hx Cirrhosis: No Hx Alcoholism: No Hx HIV/AIDS: No Hx Splenectomy or Spleen Trauma: No Other PMH: BIPOLAR,ANXIETY,INSOMNIA,OCD, add. migraines, fibromyalgia - Social History Smoking Status: Never smoked Constitutional: Initial Vital Signs Temperature (C) 36.4 C 07/26/18 23:15 Heart Rate 85 07/26/18 23:15 Respiratory Rate 11 L 07/26/18 23:15 Blood Pressure 106/67 07/26/18 23:15 O2 Sat (%) 99 07/26/18 23:15 O2 Delivery Mode Room Air Allergies/Adverse Reactions: corn syrup Allergy (Mild, Verified 07/23/17 15:02) sweats, gi upset gluten Allergy (Mild, Verified 07/23/17 15:02) sweats, gi upset minocycline Allergy (Unknown, Verified 07/09/17 09:17) Unknown Home Medications: Medication Instructions Recorded VYVANSE 50 mg PO DAILY 12/20/15 Seroquel 300 mg PO HS 07/09/17 Lamictal 200 mg PO HS 08/03/17 [place] Carbonate 600 mg PO HS 08/13/17 Ambien 07/26/18 Medical Decision Making - Data Points Laboratory Results: 07/26/18 23:25 Urine Opiates Screen NON-NEGATIVE H (NEGATIVE) Urine Barbiturates NEGATIVE (NEGATIVE) Ur Phencyclidine Scrn NON-NEGATIVE H (NEGATIVE) Ur Amphetamine Screen NON-NEGATIVE H (NEGATIVE) U Benzodiazepines Scrn NEGATIVE (NEGATIVE) Urine Cocaine Screen NEGATIVE (NEGATIVE) U Marijuana (THC) Screen NEGATIVE (NEGATIVE) Departure - Departure Disposition: Home, Routine, Self-Care Clinical Impression: Bipolar affective disorder, depressed Condition: Good Instructions: Bipolar Disorder (ED) Additional Instructions: 1. Please return to the emergency room if he develops worsening symptoms questions or concerns. 2. Follow up with your mental health provider. Referrals: Patient,NotPresent [Unknown] - As per Instructions
[2018-07-26] MEDS ORDERED: NS 1,000 ML IV ONE (23:21)
[2018-07-27 00:14] VITALS: BP 121/62
--- NOTE | 2018-07-27 08:12 | CPEKG ---
Test Reason : OPEN Blood Pressure : / mmHG Vent. Rate : 069 BPM Atrial Rate : 070 BPM P-R Int : 123 ms QRS Dur : 087 ms QT Int : 391 ms P-R-T Axes : 066 051 042 degrees QTc Int : 419 ms Sinus rhythm Borderline Q waves in lateral leads Confirmed by Roberto Alexander ([id number]) on 07/27/2018 8:11:55 AM Referred By: Roberto Alexander Confirmed By:Roberto Alexander
== END 2018-07-27 00:27 | disposition home or self-care (01) ==
LOC: EDUNIT#
DX: F31.9 Bipolar disorder, unspecified (principal)
CPT/HCPCS: 80305